=== PATIENT | female | born 1980 | race Two or more races ===

== ENCOUNTER 2018-02-14 18:40 | Emergency (ER) | payer SELFPAY ==
[~2018-02-14] VITALS: Ht 167.6 cm; Wt 102.6 kg
[2018-02-14] MEDS ORDERED: PERCOCET 5/31 TABLET PO (20:55)
[2018-02-14] MEDS ORDERED: MEDROL DOSEPAK4 MG PO (20:55)
[2018-02-14 21:13] VITALS: BP 123/58
== END 2018-02-14 21:14 | disposition home or self-care (01) ==
LOC: EME 18:40
DX: M54.5 Low back pain (principal); G89.29 Other chronic pain; F17.200 Nicotine dependence, unspecified, uncomplicated
CPT/HCPCS: 99281; 99283; J7512

== ENCOUNTER 2018-02-19 21:25 | Emergency (ER) | payer SELFPAY ==
[~2018-02-19] VITALS: Ht 167.6 cm; Wt 103.1 kg
[~2018-02-19 21:25] MED LIST: MEDROL DOSEPAK4 MG PO; PERCOCET 5/31 TABLET PO
[2018-02-19 21:27] VITALS: BP 133/73
[2018-02-20] MEDS ORDERED: ROXICODONE5 MG PO (21:04)
== END 2018-02-19 22:49 | disposition left against medical advice (07) ==
LOC: EME 21:25
DX: R22.41 Localized swelling, mass and lump, right lower limb (principal); R22.42 Localized swelling, mass and lump, left lower limb; Z53.21 Procedure and treatment not carried out due to patient leaving prior to being seen by health care provider

== ENCOUNTER 2018-02-20 20:45 | Emergency (ER) | payer SELFPAY ==
[~2018-02-20] VITALS: Ht 167.6 cm; Wt 102.5 kg
[2018-02-20] MEDS ORDERED: ROXICODONE5 MG PO (21:04)
[2018-02-20 21:19] VITALS: BP 141/87
== END 2018-02-20 21:20 | disposition home or self-care (01) ==
LOC: EXP 20:45 → EME 20:45 → EXP 21:20
DX: T39.1X5A Adverse effect of 4-Aminophenol derivatives, initial encounter (principal); M79.89 Other specified soft tissue disorders; M54.5 Low back pain; Z76.0 Encounter for issue of repeat prescription
CPT/HCPCS: 99281; 99283